=== PATIENT | male | born 1990 | race Asian ===

== ENCOUNTER 2019-09-14 11:18 | Emergency (ER) | payer OTHER ==
[2019-09-14 11:35] VITALS: BP 139/96
[2019-09-14] MEDS ORDERED: KETOROLAC 60 MG/2 ML VIAL IM STA (12:53)
--- NOTE | 2019-09-14 12:55 | ED Physician Documentation ---
PD HPI LOWER EXT INJURY - Stated complaint Stated Complaint: TOE PX - Chief complaint Chief Complaint: Ext Problem - History obtained from History obtained from: Patient - History of Present Illness PD HPI LOW EXT INJURY LOCATION: Right, Foot, Toe Type of injury: Other (unknown, no injury) Where injury occurred: Home Timing - onset: Today (this morning at 7am, about 4.5 hours ago) Timing - duration: Hours (4) Timing - details: Abrupt onset Severity Comments: moderate Improved by: Nothing Worsened by: Moving, Palpating Associated symptoms: Swelling. No: Weakness, Numbness, Tingling Contributing factors: No: Anticoagulated, Prior ortho surgery, Prosthetic joint, Work related Similar symptoms before: Has not had sx before Recently seen: Not recently seen - Treatment prior to arrival Treatment prior to arrival: ibuprofen once first thing t his morning Review of Systems Ten Systems: 10 systems reviewed and negative Constitutional: denies: Fever Cardiac: reports: Reviewed and negative Respiratory: reports: Reviewed and negative GI: reports: Reviewed and negative Skin: reports: Other (redness) Musculoskeletal: reports: Extremity pain, Joint pain Neurologic: denies: Focal weakness, Numbness Endocrine: denies: Easy bruising / bleeding Immunocompromised: reports: Reviewed and negative PD PAST MEDICAL HISTORY - Past Medical History Past Medical History: No - Past Surgical History Past Surgical History: No - Present Medications Home Medications: Ambulatory Orders Medication Instructions Recorded Confirmed No Known Home Medications 09/14/19 09/14/19 - Allergies Allergies/Adverse Reactions: Allergies Allergy/AdvReac Type Severity Reaction Status Date / Time No Known Drug Allergies Allergy Verified 09/14/19 11:31 - Social History Does the pt smoke?: No Smoking Status: Never smoker Does the pt have substance abuse?: No - Immunizations Immunizations are current?: Yes - POLST Patient has POLST: No PD ED PE NORMAL - Vitals Vital signs reviewed: Yes - General General: Alert and oriented X 3, No acute distress, Well developed/nourished - HEENT HEENT: Atraumatic, Moist mucous membranes - Neck Neck: Supple, no meningeal sign - Cardiac Cardiac: RRR - Respiratory Respiratory: No respiratory distress - Abdomen Abdomen: Non distended - Male Male : Deferred - Rectal Rectal: Deferred - Extremities Extremities: No deformity, No calf tenderness / cord - Neuro Neuro: Alert and oriented X 3, No motor deficit, No sensory deficit Eye Opening: Spontaneous Motor: Obeys Commands Verbal: Oriented GCS Score: 15 - Psych Psych: Normal mood, Normal affect PD ED PE EXPANDED - Derm Derm: Warm and dry, Other (R first MTP with mild swelling, redness, warmth ). No: Rash, Abrasion (s), Bruising, Laceration(s) - Extremities Extremities: Swelling, Other (Right first MTP joint tenderness that is moderate in severity, normal ROM, joint is red, warm, swollen). No: Limited ROM Results - Vitals Vitals: Vital Signs - 24 hr 09/14/19 11:31 Temperature 36.9 C Heart Rate 99 Respiratory 16 Rate Blood Pressure 139/96 H O2 Saturation 96 Oxygen O2 Source Room air PD MEDICAL DECISION MAKING - ED course Complexity details: considered differential, d/w patient ED course: ddx- foot arthritis, injury, gout, pseudogout, cellulitis, septic arthritis 29 y/o M with hx and examination as documented, no fever. R first MTP pain, redness, minimal swelling, i suspect this is gout based on hx and exam. Atraumatic pain, do not feel that emergent imaging would be useful at this time. Will empirically treat as gout with outpt f/u and return precautions if worsening pain, fever, streaking redness or other new concerning symptoms. Departure - Departure Disposition: 01 Home, Self Care Clinical Impression: Gout Qualifiers: Gout site: foot Gout etiology: unspecified cause Chronicity: acute Laterality: right Qualified Code(s): M10.9 - Gout, unspecified Condition: Stable Record reviewed to determine appropriate education?: Yes Instructions: ED Arthritis Gout Follow-Up: CHELSEA CARPIO MD [Primary Care Provider] - Within 1 week (recheck your symptoms ) Comments: Your pain in your foot is most likely due to gout which is an inflammatory arthritis of the joint. You should take ibuprofen 800mg every 8 hours for pain and to reduce the inflammation. Follow up with your regular doctor to recheck your symptoms. If symptoms worsen such as streaking redness up the foot or leg or fever return to the ED. Discharge Date/Time: 09/14/19 13:11
== END 2019-09-14 13:11 | disposition home or self-care (01) ==
LOC: EDBD → ED 11:18
DX: M10.9 Gout, unspecified (principal)
CPT/HCPCS: 96372; 99283; 99284